=== PATIENT | female | born 1995 | race Two or more races ===

== ENCOUNTER 2018-10-19 10:19 | Day surgery (SDC) | payer MEDICAID ==
--- NOTE | 2018-10-17 16:05 | PREOPHP ---
DATE OF ADMISSION: 10/19/2018 Scheduled for outpatient surgery on 10/19/2018. HISTORY OF PRESENT ILLNESS: The patient is a 23-year-old female in overall good health with a 1-year history of a right breast mass she first noted in 09/2017 associated with the pain that is located a t 12 o'clock 7 cm from the nipple, measuring 5.8 x 4.2 x 7.3 cm. Core needle biopsy revealed fibrocy stic changes with focal pseudoangiomatous stromal hyperplasia, ductal epithelial hyperplasia, micropa pillary apocrine metaplasia and a tiny ductal papilloma. No malignancy was identified. The patient is scheduled to undergo excision of her symptomatic mass. PAST MEDICAL HISTORY: MEDICATIONS: None. ALLERGIES: NONE. OPERATIONS: None. REVIEW OF SYSTEMS: 1, para 1, having regular menstrual periods. FAMILY HISTORY: She has grandmother who had breast cancer at age 64. PHYSICAL EXAMINATION: VITAL SIGNS: 5-foot 2 inches, 147 pounds. HEENT: Within normal limits. LUNGS: Clear. HEART: Regular rate, rhythm. BREASTS: Reveal her breast to be large. Left breast was unremarkable. The right breast has a large mass in the upper breast midway between the nipple and the periphery. There is no palpable axillary or supraclavicular lymphadenopathy. ABDOMEN: Soft. PELVIC AND RECTAL: Per primary care. EXTREMITIES: Without edema. NEUROLOGIC: Physiologic. IMPRESSION: Right breast mass with fibrocystic change and multiple histologic abnormalities. PLAN: Full discussion has been had with the patient regarding the nature of the condition, the natur e of the surgery, indications, alternatives, options and risks including bleeding, infection, need fo r additional surgery or treatments based on final pathology, scarring, distortion of the breast and/o r nipple, et cetera. All questions have been answered. She understands and agrees to proceed as an outpatient under general anesthesia. Dictated By: BREONNA CABRAL/CLAUDIA Conf#: [id number] DID#: [id number]
[~2018-10-19] VITALS: Ht 157.5 cm; Wt 68.2 kg
[2018-10-19] VITALS (13 sets, daily range): BP systolic 85–108; BP diastolic 38–73; PULSE 57–110; RESP 13–20; Ht 157.5 cm; Wt 68.2 kg
[~2018-10-19 10:19] MED LIST: CEFAZOLIN 1 GM/50 ML (PMX) 50 ML IVPB SCH; SOD CHLORIDE 0.9% 1,000 ML IV ONE
--- NOTE | 2018-10-19 12:11 | HPN ---
Date/Time of Note Date/Time of Note DATE: 10/19/18 TIME: 12:11 Interval H&P Admission Note Pt. seen H&P reviewed: No system changes BREONNA PRIEST Oct 19, 2018 12:11
--- NOTE | 2018-10-19 12:23 | PREAC ---
Date/Time of Note Date/Time of Note DATE: 10/19/18 TIME: 12:22 Anesthesia Eval and Record Evaluation Time Pre-Procedure Interview DATE: 10/19/18 TIME: 12:22 Age 23 Sex female NPO: 8 hrs Preoperative diagnosis right breast mass Planned procedure excision of right breasr mass Past Medical History Past Medical History: Includes Pulm: Asthma Surgery & Anesthesia Issues No known issue Meds Anticoagulation: No Beta Jose Daniel within 24 hr: No Reason Beta Jose Daniel not given: Pt. not on B-Jose Daniel No Active Prescriptions or Reported Meds Current Medications Cefazolin Sodium 50 ml @ 100 mls/hr PRE-OP IVPB ; Start 10/19/18 at 06:00; St op 10/19/18 at 15:00 Sodium Chloride 1,000 ml @ 75 mls/hr [id number] ONCE IV Last administered on 10/19at 11:00; Admin Dose 75 MLS/HR; Start 10/19/18 at 06:00; Stop 10/19/18 at 19:19 Meds reviewed: Yes Allergies Coded Allergies: No Known Allergy (Unverified , 10/19/18) Allergies Reviewed: Yes Labs/Studies Labs Reviewed: Reviewed by anesthesiologist Result Diagram: 10/19/18 1111 Laboratory Tests 10/19/18 11:11 test: Negative Studies: ECG (n/a), CXR (n/a) Pre-procedure Exam Last vitals Vital Signs Date Temp Pulse Resp B/P (MAP) Pulse Ox O2 O2 Flow FiO2 Time Delivery Rate 10/19/18 98.6 92 16 108/73 99 Room Air 11:20 (85) Airway: Adequate mouth opening Mallampati: Mallampati I Teeth: Normal Lung: Normal Heart: Normal ASA Physical Status ASA physical status: 2 Emergency: None Planned Anesthetic General/MAC: LMA Planned Pain Management Parenteral pain med Pre-operative Attestations Prior to commencing anesthesia and surgery, the patient was re-evaluated, there was verification of: *The patient's identity *The results of appropriate recent lab work and preoperative vital signs *The above evaluation not changing prior to induction *Anesthetic plan, risk benefits, alternative and complications discussed with patient/family; questions answered; patient/family understands, accepts and w ishes to proceed. RANJITH LEMUS MD Oct 19, 2018 12:23
[2018-10-19] MEDS ORDERED: CEFAZOLIN 1 GM INJ ONE (12:26)
[2018-10-19] MEDS ORDERED: PROPOFOL 20 ML ONE ×2 (12:26→12:46)
[2018-10-19] MEDS ORDERED: MIDAZOLAM 1 MG/ML 2 ML INJ ONE (12:26)
[2018-10-19] MEDS ORDERED: KETOROLAC 30 MG INJ ONE (12:27)
[2018-10-19] MEDS ORDERED: METOCLOPRAMIDE 10 MG INJ ONE (12:27)
[2018-10-19] MEDS ORDERED: ONDANSETRON 4 MG INJ ONE (12:27)
[2018-10-19] MEDS ORDERED: OXYCODONE/ACETAMINOPHEN (5/325) TAB PO PRN ×2 (12:30)
[2018-10-19] MEDS ORDERED: DIPHENHYDRAMINE 50 MG INJ IV PRN (12:30)
[2018-10-19] MEDS ORDERED: ONDANSETRON 4 MG INJ IV PRN (12:30)
[2018-10-19] MEDS ORDERED: HYDROmorphONE 1 MG/5 ML IV SYRINGE IV PRN ×3 (12:30)
[2018-10-19] MEDS ORDERED: MEPERIDINE 25 MG INJ IV PRN (12:30)
[2018-10-19] MEDS ORDERED: FENTAnyl 50 MCG/ML VIAL ONE (12:33)
[2018-10-19] MEDS ORDERED: HYDROmorphONE 2 MG/ML SYG ONE (12:40)
--- NOTE | 2018-10-19 13:27 | SIPON ---
Date/Time of Note Date/Time of Note DATE: 10/19/18 TIME: 13:25 Operative Report Preoperative Diagnosis right breast mass Postoperative Diagnosis same likely fibrocystic disease Operation/Procedure Performed excision of right breast mass Surgeon see signature line assistant designer none Anesthesia: general Estimated blood loss: minimal Transfusion Required none Specimen right breast mass Grafts/Implants none Complications none BREONNA PRIEST Oct 19, 2018 13:26
--- NOTE | 2018-10-19 13:42 | OPR ---
DATE OF OPERATION: 10/19/2018 SURGEON: Breonna Arguelles MD LOFTSMAN: None. ANESTHESIOLOGIST: Ruth Hale MD TYPE OF ANESTHESIA: General. PREOPERATIVE DIAGNOSIS: Right breast mass. POSTOPERATIVE DIAGNOSIS: Right breast mass. OPERATION PERFORMED: Excision of right breast mass. INDICATION: The patient noted a right breast mass a year ago associated with pain at 12 o'clock and midway between the nipple and the periphery. The mass was originally measured by imaging studies at 5.8 x 4.2 x 7.3 cm. Core biopsy revealed fibrocystic changes with hyperplasia both ductal and stroma l as well as papilloma. At the time of the procedure, there were multiple small and larger cysts and the palpable abnormality was resected. DESCRIPTION OF PROCEDURE: The patient was taken to the operating room and under general anesthesia w ith sequential compression device stockings in place, the patient was prepped and draped in the usual fashion. A curvilinear incision was made overlying the mass and flaps were dissected circumferentia lly. The mass was resected clearly getting below it and removing palpable nodular abnormalities. Th ere were multiple small and somewhat larger 1 cm or less cysts encountered and evacuated, but I did n ot feel it was appropriate to resect more breast tissue. The field was irrigated and hemostasis was carefully achieved with cautery. Incision was closed with interrupted 4-0 Vicryl, deep dermal subcut aneous sutures then continuous 4-0 Monocryl subcuticular suture. THE PATIENT WAS ALLERGIC TO STERI-S TRIPS, so Dermabond was applied and allowed to dry followed by dry sterile dressing. Final sponge an d needle counts were correct. The patient tolerated the procedure well and left the operating room i n good condition. Dictated By: BREONNA CABRAL/CLAUDIA Conf#: [id number] DID#: [id number]
--- NOTE | 2018-10-19 15:21 | PAC ---
Date/Time of Note Date/Time of Note DATE: 10/19/18 TIME: 15:21 Post-Anesthesia Notes Post-Anesthesia Note Last documented vital signs Vital Signs Date Temp Pulse Resp B/P (MAP) Pulse Ox O2 O2 Flow FiO2 Time Delivery Rate 10/19/18 97.3 57 16 107/64 98 Room Air 14:39 (78) 10/19/18 6.0 13:45 Activity: WNL Respiratory function: WNL Cardiovascular function: WNL Mental status: Baseline Pain reasonably controlled: Yes Hydration appropriate: Yes Nausea/Vomiting absent: No RANJITH LEMUS MD Oct 19, 2018 15:21
== END 2018-10-19 15:10 | disposition home or self-care (01) ==
LOC: SDS 10:19
PROVIDERS: ATTEND Surgery
DX: D24.1 Benign neoplasm of right breast (principal); J45.909 Unspecified asthma, uncomplicated
CPT/HCPCS: 19120; 80053; 85610; 85730; J0690; J1170; J1885; J2250; J2405; J2765; J3010; Z7610; 88307